=== PATIENT | female | born 1945 | race Caucasian/White ===

== ENCOUNTER → 2017-03-14 | Outpatient (CLI) | payer MEDICARE ==
--- NOTE | 2017-03-15 08:58 | MM ---
Reason for exam: screening (asymptomatic). Last mammogram was performed 1 year and 1 month ago. History: Patient is postmenopausal. Family history of breast cancer in maternal cousin at age 67. Took hormonal contraceptives for 2 years beginning at age 21. Taking estrogen for 18 years beginning at age 49. Physical Findings: A clinical breast exam by your physician is recommended on an annual basis and results should be correlated with mammographic findings. MG Screening Mammo w CAD Bilateral CC and MLO view(s) were taken. Prior study comparison: February 07, 2016, bilateral MG screening mammo w CAD. January 05, 2015, bilateral MG screening mammo w CAD. There are scattered fibroglandular densities. No suspicious calcifications are seen. Focal asymmetry upper outer right breast is stable. No significant changes when compared with prior studies. ASSESSMENT: Benign, BI-RAD 2 RECOMMENDATION: Routine screening mammogram of both breasts in 1 year.
== END | disposition home or self-care (01) ==
LOC: RADMAMWWP 11:10
PROVIDERS: ATTEND Internal Medicine
DX: Z12.31 Encounter for screening mammogram for malignant neoplasm of breast (principal)

== ENCOUNTER → 2018-04-23 | Outpatient (CLI) | payer MEDICARE ==
--- NOTE | 2018-04-23 17:11 | BD ---
EXAMINATION TYPE: Axial Bone Density DATE OF EXAM: 04/23/2018 COMPARISON: 10/22/2014 CLINICAL HISTORY: Height: 66 IN Weight: 164 LBS RISK FACTORS HISTORY OF: Family History of Osteoporosis: YES SISTER Active: YES Postmenopausal woman: AGE 53 Take estrogen and/or progesterone medications: YES How long: AGE 56-PRESENT MEDICATIONS: Thyroid Medications: YES Which medication: LEVOTHYROXINE How Lon YEARS Additional Medications: CALCIUM, VIT D, LEVOTHYROXINE, XARELTO,LISINOPRIL, OMEGA 3, RALOXIFENE,CARDIZ AM, HORMONE EXAM MEASUREMENTS: Bone mineral densitometry was performed using the [employer] System. Bone mineral density as measured about the Lumbar spine is: ----- L1-L4(G/cm2): 1.301 T Score Values are as follows: ----- L2: 1.4 ----- L3: 1.2 ----- L4: 1.3 ----- L1-L4: 1.0 Bone mineral density has: Increased 3.3% since study of: 10/22/2014 Bone mineral density about the R hip (g/cm2): 0.836 Bone mineral density about the L hip (g/cm2): 0.878 T Score values are as follows: -----R Neck: -1.5 -----L Neck: -1.2 -----R Total: -1.1 -----L Total: -1.1 Bone mineral density has: Decreased -3.4% since study of: 10/22/2014 IMPRESSION: Osteopenia (T Score between -2.5 and -1). There is slightly increased risk of fracture and the patient may be considered for treatment. Re-Screen 2-5 years. NOTE: T-SCORE=SD OF THE YOUNG ADULT MEAN.
--- NOTE | 2018-04-24 14:50 | MM ---
Reason for exam: screening (asymptomatic). Last mammogram was performed 1 year and 1 month ago. History: Patient is postmenopausal. Family history of breast cancer in maternal cousin at age 67. Took hormonal contraceptives for 2 years beginning at age 21. Taking estrogen for 18 years beginning at age 49. Physical Findings: A clinical breast exam by your physician is recommended on an annual basis and results should be correlated with mammographic findings. MG Screening Mammo w CAD Bilateral CC and MLO view(s) were taken. Prior study comparison: March 14, 2017, bilateral MG screening mammo w CAD. February 07, 2016, bilateral MG screening mammo w CAD. There are scattered fibroglandular densities. There is no discrete abnormality. No significant changes when compared with prior studies. ASSESSMENT: Negative, BI-RAD 1 RECOMMENDATION: Routine screening mammogram of both breasts in 1 year.
== END | disposition home or self-care (01) ==
LOC: RADMAMWWP 12:41
PROVIDERS: ATTEND Internal Medicine
DX: Z12.31 Encounter for screening mammogram for malignant neoplasm of breast (principal); M85.80 Other specified disorders of bone density and structure, unspecified site
CPT/HCPCS: 77067; 77080

== ENCOUNTER → 2019-06-29 | Outpatient (CLI) | payer MEDICARE ==
--- NOTE | 2019-06-30 07:38 | MM ---
Reason for exam: screening (asymptomatic). Last mammogram was performed 1 year and 2 months ago. History: Patient is postmenopausal. Family history of breast cancer in maternal cousin at age 67. Took hormonal contraceptives for 2 years beginning at age 21. Taking estrogen for 18 years beginning at age 49. Physical Findings: A clinical breast exam by your physician is recommended on an annual basis and results should be correlated with mammographic findings. MG Screening Mammo w CAD Bilateral CC and MLO view(s) were taken. Prior study comparison: April 23, 2018, bilateral MG screening mammo w CAD. March 14, 2017, bilateral MG screening mammo w CAD. There are scattered fibroglandular densities. Benign appearing bilateral calcifications. No suspicious abnormality. No significant changes when compared with prior studies. ASSESSMENT: Benign, BI-RAD 2 RECOMMENDATION: Routine screening mammogram of both breasts in 1 year.
== END | disposition home or self-care (01) ==
LOC: RADMAMWWP 09:08
PROVIDERS: ATTEND Internal Medicine
DX: Z12.31 Encounter for screening mammogram for malignant neoplasm of breast (principal)
CPT/HCPCS: 77067

== ENCOUNTER 2020-08-31 08:15 | Day surgery (SDC) | payer MEDICARE ==
[2020-08-24 18:07] VITALS: BMI 24.3
[~2020-08-31 08:15] MED LIST: LACTATED RINGERS 1,000 ML IV SCH; LIDOCAINE 1% (10MG/ML) FOR IV START INTRADERMA PRN
[2020-08-31 08:41] VITALS: TEMP 98.2
[2020-08-31] MEDS ORDERED: PROPOFOL 10 MG/ML 20 ML VIAL IV ONE (09:36)
--- NOTE | 2020-08-31 10:04 | P.PCN ---
Date of Procedure: 08/31/20 Procedure(s) Performed: BRIEF HISTORY: Patient is a 75-year-old pleasant female scheduled for an elective colonoscopy as a part of screening for colorectal neoplasia. Last colonoscopy was 15 years ago. PROCEDURE PERFORMED: Colonoscopy. PREOPERATIVE DIAGNOSIS: Screening for colon cancer. IV sedation per Anesthesia. PROCEDURE: After informed consent was obtained, the patient, was brought into the endoscopy unit. IV sedation was administered by Anesthesia under continuous monitoring. Digital rectal examination was normal. Initially the Olympus CF-160 flexible video colonoscope was then inserted in the rectum, gradually advanced into the cecum without any difficulty. Careful examination was performed as the scope was gradually being withdrawn. Ileocecal valve and the appendiceal orifice were visualized and appeared normal. Prep was excellent. Mucosa of the cecum, ascending colon, transverse colon, descending colon, sigmoid colon, and rectum appeared normal. Scattered sigmoid diverticulosis. Retroflexion was performed in the rectum and . grade 2 internal hemorrhoids with small rectal prolapse were seen. The patient tolerated the procedure well. IMPRESSION: Normal-appearing colon from rectum to cecum with no evidence of colorectal neoplasia . Scattered sigmoid diverticulosis Grade 2 internal hemorrhoids with small rectal prolapse RECOMMENDATIONS: Findings of this examination were discussed with the patientas well as a family. She was advised to be a high-fiber diet and take fiber supplements a regular basis.].
[2020-08-31 10:34] VITALS: BP 130/85; PULSE 91; RESP 16
== END 2020-08-31 11:08 | disposition home or self-care (01) ==
LOC: ORWHC2ENDO 08:15
PROVIDERS: ATTEND Internal Medicine Gastroenterology
DX: Z12.11 Encounter for screening for malignant neoplasm of colon (principal); K57.30 Diverticulosis of large intestine without perforation or abscess without bleeding; K64.1 Second degree hemorrhoids; K62.3 Rectal prolapse; I10 Essential (primary) hypertension; I48.91 Unspecified atrial fibrillation; E07.9 Disorder of thyroid, unspecified; Z79.01 Long term (current) use of anticoagulants; Z98.890 Other specified postprocedural states; Z79.890 Hormone replacement therapy; Z79.899 Other long term (current) drug therapy; Z90.710 Acquired absence of both cervix and uterus
CPT/HCPCS: 45378; J2704

== ENCOUNTER → 2021-07-05 | Outpatient (CLI) | payer MEDICARE ==
--- NOTE | 2021-07-06 11:44 | MM ---
Reason for exam: screening (asymptomatic). Last mammogram was performed 2 years ago. History: Patient is postmenopausal. Family history of breast cancer in maternal cousin at age 67. Took hormonal contraceptives for 2 years beginning at age 21. Taking estrogen for 27 years beginning at age 49. Physical Findings: A clinical breast exam by your physician is recommended on an annual basis and results should be correlated with mammographic findings. MG Screening Mammo w CAD Bilateral CC and MLO view(s) were taken. Prior study comparison: June 29, 2019, bilateral MG screening mammo w CAD. April 23, 2018, bilateral MG screening mammo w CAD. The breast tissue is heterogeneously dense. This may lower the sensitivity of mammography. There are benign appearing round calcifications bilaterally. There is no discrete abnormality. ASSESSMENT: Benign, BI-RAD 2 RECOMMENDATION: Routine screening mammogram of both breasts in 1 year.
== END | disposition home or self-care (01) ==
LOC: RADMAMWWP 09:41
PROVIDERS: ATTEND Internal Medicine
DX: Z12.31 Encounter for screening mammogram for malignant neoplasm of breast (principal); Z85.3 Personal history of malignant neoplasm of breast; Z78.0 Asymptomatic menopausal state
CPT/HCPCS: 77067

== ENCOUNTER → 2022-11-12 | Outpatient (CLI) | payer MEDICARE ==
--- NOTE | 2022-11-12 13:04 | BD ---
EXAMINATION TYPE: Axial Bone Density DATE OF EXAM: 11/12/2022 CLINICAL HISTORY: 77 years old Female. ICD-10 CODE: M81.0 OSTEOPOROSIS Height: 5 ft 6 in Weight: 163 FRAX RISK QUESTIONS: Alcohol (3 or more units per day): no Family History (Parent hip fracture): no Glucocorticoids (More than 3mos): no (Ex: prednisone, prednisolone, methylprednisolone, dexamethasone, and hydrocortisone). History of Fracture in Adulthood: no Secondary Osteoporosis: 1. Type 1 Diabetes: no 2. Hyperthyroidism: no 3. Menopause before 45: no 4. Malnutrition: no 5. Chronic liver disease: no Rheumatoid Arthritis: no Current Tobacco Use: no RISK FACTORS HISTORY OF: Surgery to Spine/Hip(right/left)/Wrist (right/left): no Family History of Osteoporosis: yes Active: yes Diet low in dairy products/other sources of calcium: no Postmenopausal woman: yes Take estrogen and/or progesterone medications: currently on for the last 30 years Lost more than 2 inches in height since high school: yes Frequent falls: no Poor Health: good Hyperparathyroidism: no Adrenal Insufficiency: no MEDICATIONS: Thyroid Medications: yes Which medication: levothyroxine How Lon-12 years Additional Medications: levothyroxine, Claritin, omega 3, Cartia , Xarelto, lisinopril , raloxifene , Additional History: EXAM MEASUREMENTS: Bone mineral densitometry was performed using the [employer] System. Bone mineral density as measured about the Lumbar spine is: ----- L1-L4(G/cm2): 1.196 T Score Values are as follows: ----- L1: -0.7 ----- L2: 0.2 ----- L3: 0.8 ----- L4: 0.1 ----- L1-L4: 0.1 Z Score Values are as follows: ----- L1: 0.8 ----- L2: 1.8 ----- L3: 2.3 ----- L4: 1.6 ----- L1-L4: 1.7 Bone mineral density has: decreased -8.1 % since study of: 2018 Bone mineral density about the R hip (g/cm2): 0.792 Bone mineral density about the L hip (g/cm2): 0.818 T Score values are as follows: -----R Neck: -1.8 -----L Neck: -1.6 -----R Total: -1.4 -----L Total: -1.6 Z Score values are as follows: -----R Neck: 0.2 -----L Neck: 0.4 -----R Total: 0.4 -----L Total: 0.2 Bone mineral density has: decreased -5.8 % since study of: 2018 FRAX%s: The graph provided illustrates a 14.8 % chance for a major osteoporotic fx and a 3.9 % chance for the hips probability for fx in 10 years time. IMPRESSION: Osteopenia (T Score between -2.5 and -1) is now present in both hips. There is slightly increased risk of fracture and the patient may be considered for treatment. Re-Screen 2-5 years. NOTE: T-SCORE=SD OF THE YOUNG ADULT MEAN.
--- NOTE | 2022-11-13 16:56 | MM ---
Reason for Exam: Screening (asymptomatic). Last mammogram was performed 1 year(s) and 4 month(s) ago. Patient History: Menarche at age 12. First Full-Term at age 28. Late child-bearing (after 28). Hysterectomy at age 44. Postmenopausal. Currently using Estrogen, beginning at age 49 for 27 years. Hormonal Contraceptives for 2 years from age 21 until age 23. Maternal cousin had breast cancer, age 67. Risk Values: Cat 5 year model risk: 2.1%. NCI Lifetime model risk: 3.5%. Prior Study Comparison: 04/23/2018 Bilateral Screening Mammogram, [facility]. 06/29/2019 Bilateral Screening Mammogram, [facility]. 07/05/2021 Bilateral Screening Mammogram, [facility]. Tissue Density: The breast tissue is heterogeneously dense. This may lower the sensitivity of mammography. Findings: Analyzed By CAD. No significant interval change is evident. Pattern appears stable. No suspicious groups of microcalcifications, spiculated or lobular masses, architectural distortion or other secondary signs of malignancy are mammographically apparent. Overall Assessment: Negative, BI-RAD 1 Management: Screening Mammogram of both breasts in 1 year. A negative mammogram report should not preclude additional follow up of suspicious palpable abnormalities. Patient should continue monthly self breast exam. A clinical breast exam by your physician is recommended on an annual basis and results should be correlated with mammographic findings. Electronically signed and approved by: Sukumar Hall D.O. Radiologis
== END | disposition home or self-care (01) ==
LOC: RADMAMWWP 11:31
PROVIDERS: ATTEND Internal Medicine
DX: Z12.31 Encounter for screening mammogram for malignant neoplasm of breast (principal); M81.0 Age-related osteoporosis without current pathological fracture; M85.89 Other specified disorders of bone density and structure, multiple sites; Z78.0 Asymptomatic menopausal state; Z80.3 Family history of malignant neoplasm of breast
CPT/HCPCS: 77067; 77080

== ENCOUNTER → 2023-11-14 | Outpatient (CLI) | payer MEDICARE ==
--- NOTE | 2023-11-19 10:59 | MM ---
Reason for Exam: Screening (asymptomatic). Last screening mammogram was performed 12 month(s) ago. Patient History: Menarche at age 12. First Full-Term at age 28. Late child-bearing (after 28). Hysterectomy at age 44. Postmenopausal. Currently using Estrogen, beginning at age 49 for 27 years. Hormonal Contraceptives for 2 years from age 21 until age 23. Maternal cousin had breast cancer, age 67. Risk Values: Cat 5 year model risk: 2.1%. NCI Lifetime model risk: 3.2%. Prior Study Comparison: 06/29/2019 Bilateral Screening Mammogram, [facility]. 07/05/2021 Bilateral Screening Mammogram, [facility]. 11/12/2022 Bilateral MG screening mammo w CAD, [facility]. Tissue Density: There are scattered areas of fibroglandular density. Findings: Analyzed By CAD. Right breast: There is no suspicious group of microcalcifications or new suspicious mass. Left breast: There is no suspicious group of microcalcifications or new suspicious mass. Benign-appearing calcifications left breast. There is no suspicious group of microcalcifications or new suspicious mass. Overall Assessment: Benign, BI-RAD 2 Management: Screening Mammogram of both breasts in [address] [facility] will attempt to contact patient to return for supplemental views and ultrasound if indicated. Patient should continue monthly self-breast exams. A clinical breast exam by your physician is recommended on an annual basis. This exam should not preclude additional follow-up of suspicious palpable abnormalities. Note on Cat scores and lifetime risk: 1. A Cat score greater than 3% is considered moderate risk. If this is the case, consider specialist referral to assess eligibility for a risk reducing agent. 2. If overall lifetime risk for the development of breast cancer is 20% or higher, the patient may qualify for future screening with alternating mammogram and breast MRI. Electronically signed and approved by: Zafar New DO
== END | disposition home or self-care (01) ==
LOC: RADMAMWWP 10:13
PROVIDERS: ATTEND Internal Medicine
DX: Z12.31 Encounter for screening mammogram for malignant neoplasm of breast (principal); Z80.3 Family history of malignant neoplasm of breast; Z78.0 Asymptomatic menopausal state
CPT/HCPCS: 77063; 77067

== ENCOUNTER → 2024-05-22 | Outpatient (CLI) | payer MEDICARE ==
--- NOTE | 2024-05-22 12:16 | US ---
EXAMINATION TYPE: US venous doppler duplex LE LT DATE OF EXAM: 05/22/2024 12:01 PM COMPARISON: NONE CLINICAL INDICATION: Female, 79 years old with history of LLE; M79.662; Left leg edema SIDE PERFORMED: Left TECHNIQUE: The lower extremity deep venous system is examined utilizing real time linear array sonog stew with graded compression, doppler sonography and color-flow sonography. VESSELS IMAGED: Common Femoral Vein Deep Femoral Vein Greater Saphenous Vein * Femoral Vein Popliteal Vein Small Saphenous Vein * Proximal Calf Veins (* superficial vessels) Left Leg: Negative for DVT IMPRESSION: 1. Left lower extremity ultrasound negative for deep venous thrombosis. [facility], , 05/22/2024 12:13 PM
== END | disposition home or self-care (01) ==
LOC: RADUSWWP 11:42
PROVIDERS: ATTEND Internal Medicine
DX: M79.662 Pain in left lower leg (principal); R22.42 Localized swelling, mass and lump, left lower limb